=== PATIENT | female | born 1995 | race Caucasian/White ===

== ENCOUNTER 2019-06-18 11:08 | Emergency (ER) | payer OTHER ==
[~2019-06-18] VITALS: Ht 154.9 cm; Wt 68.0 kg
[2019-06-18 11:10] VITALS: Ht 154.9 cm; Wt 68.0 kg
[2019-06-18 14:26] VITALS: BP 135/89
== END 2019-06-18 14:26 | disposition home or self-care (01) ==
LOC: ED 11:08
DX: S51.012A Laceration without foreign body of left elbow, initial encounter (principal); S51.812A Laceration without foreign body of left forearm, initial encounter; J45.909 Unspecified asthma, uncomplicated; W22.8XXA Striking against or struck by other objects, initial encounter; Y93.89 Activity, other specified; Y92.89 Other specified places as the place of occurrence of the external cause; Y99.8 Other external cause status
CPT/HCPCS: J0696; J2001; J2405; J3010